=== PATIENT | male | born 1940 | race Caucasian/White ===

== ENCOUNTER 2016-09-29 10:32 | Day surgery (SDC) | payer MEDICARE, OTHER ==
--- NOTE | ~2016-09-29 | EGD ---
EGD REPORT [facility] [address] [place] [address] NAME: DEMETRIUS HUSSEIN : [birth year] STATUS : REG [facility]#: [id number] AGE: 75 ADM/REG DATE : 09/29/16 MR#: [id number] REPORT SERV DATE: 09/29/16 DICTATED BY: NAVI POWER DATE: 09/29/16 REPORT STATUS : Draft TRANSCRIBED BY: [facility] DATE: 09/29/16 [facility] Patient Name: Demetrius Hussein Date of : 1940 Attending MD: NAVI POWER MD Procedure Date No Time: 09/29/2016 Procedure: Colonoscopy Indications: High risk colon cancer surveillance: Personal history of non-advanced adenoma Referring MD: REINA BEAVERS MD Medicines: Propofol per Anesthesia Complications: No immediate complications. Estimated blood loss: Minimal. Procedure: Pre-Anesthesia Assessment: - After reviewing the risks and benefits, the patient was deemed in satisfactory condition to undergo the procedure. - Prior to the procedure, a History and Physical was performed, and patient medications and allergies were reviewed. The patient's tolerance of previous anesthesia was also reviewed. The risks and benefits of the procedure and the sedation options and risks were discussed with the patient. All questions were answered, and informed consent was obtained. Prior Anticoagulants: The patient has taken no previous anticoagulant or antiplatelet agents. ASA Grade Assessment: III - A patient with severe systemic disease. After reviewing the risks and benefits, the patient was deemed in satisfactory condition to undergo the procedure. After I obtained informed consent, the scope was passed under direct vision. Throughout the procedure, the patient's blood pressure, pulse, and oxygen saturations were monitored continuously. The CF [id number] was introduced through the anus and advanced to the cecum, identified by appendiceal orifice and ileocecal valve. The colonoscopy was somewhat difficult due to significant looping. Successful completion of the procedure was aided by applying abdominal pressure. The ileocecal valve and appendiceal orifice were photographed. The patient tolerated the procedure well. The quality of the bowel preparation was good. The bowel preparation used was split dose polyethylene glycol (PEG). Scope withdrawal time was greater than 9 minutes. Findings: EGD REPORT [address] [place]. [address] NAME: DEMETRIUS HUSSEIN : [birth year] STATUS : REG [facility] [place] PAT#: [id number] AGE: 75 ADM/REG DATE : 09/29/16 MR#: [id number] REPORT SERV DATE: 09/29/16 DICTATED BY: NAVI POWER DATE: 09/29/16 REPORT STATUS : Draft TRANSCRIBED BY: [employer] DATE: 09/29/16 The perianal and digital rectal examinations were normal. Pertinent negatives include normal sphincter tone. Non-bleeding internal hemorrhoids were found during retroflexion and were large and Grade I (internal hemorrhoids that do not prolapse). Multiple small-mouthed diverticula were found in the sigmoid colon and in the descending colon. A sessile polyp was found in the transverse colon. The polyp was 5 mm in size. The polyp was removed with a cold snare. Resection and retrieval were complete. Estimated blood loss: none. A few small angiodysplastic lesions with bleeding were found in the distal rectum. The exam was otherwise without abnormality. Impression: - Non-bleeding internal hemorrhoids. - Moderate diverticulosis in the sigmoid colon and in the descending colon. - One 5 mm polyp in the transverse colon. Resected and retrieved. - A few bleeding colonic angiodysplastic lesions. - The examination was otherwise normal. - Radiation colitis. Recommendation: - Discharge patient to home (ambulatory). - High fiber diet indefinitely. - Continue present medications. - Await pathology results. - Repeat colonoscopy in 5 years for surveillance. - Patient has a contact number available for emergencies. The signs and symptoms of potential delayed complications were discussed with the patient. Return to normal activities tomorrow. Written discharge instructions were provided to the patient. 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 [address] NAME: DEMETRIUS HUSSEIN : [birth year] STATUS : REG [facility]#: [id number] AGE: 75 ADM/REG DATE : 09/29/16 MR#: [id number] REPORT SERV DATE: 09/29/16 DICTATED BY: NAVI POWER. DATE: 09/29/16 REPORT STATUS : Draft TRANSCRIBED BY: [employer] DATE: 09/29/16 CPT copyright 2013 [employer]. All rights reserved. The codes documented in this report are preliminary and upon sorting machine attendant review may be revised to meet current compliance requirements. NAVI POWER MD 09/29/2016 1:57 PM This report has been signed electronically. Number of Addenda: 0 Note Initiated On: 09/29/2016 1:25 PM Scope Withdrawal Time 0 hours 9 minutes 22 seconds [address] [facility] [address] [id number]
[~2016-09-29 10:32] MED LIST: ADVAIR250 INH; ALEVE220 MG PO; AMBIEN CR12.5 MG PO; ARICEPT10 PO; CAL/MAG/ZINC PO; COMBIVENT INH; COMBIVENT RESPIM4 GM INH; COSAMIN DS1 TAB PO; DUONEB INH; FISH-EPA1000 MG PO; L40 PO; MAGTRATE500 MG PO; MOBIC7.5 PO; MUCINEX600 MG PO; POTASSIUM GLUCO99 MG PO; POTASSIUM PO; POTASSIUM95 MG PO; VENTOLIN HFA INH; X5 PO; ZOL50 PO; ZYRTEC ALLGY10 MG PO
== END 2016-09-29 23:59 | disposition home or self-care (01) ==
LOC: DMU 10:32
PROVIDERS: Internal Medicine Gastroenterology
PROC: 0DBL8ZX Excision of Transverse Colon, Via Natural or Artificial Opening Endoscopic, Diagnostic (ICD-10-PCS; principal; 2016-09-29 12:00)
DX: Z12.11 Encounter for screening for malignant neoplasm of colon (principal); D12.3 Benign neoplasm of transverse colon; K64.0 First degree hemorrhoids; K57.30 Diverticulosis of large intestine without perforation or abscess without bleeding; K55.21 Angiodysplasia of colon with hemorrhage; K52.0 Gastroenteritis and colitis due to radiation; J44.9 Chronic obstructive pulmonary disease, unspecified; G47.33 Obstructive sleep apnea (adult) (pediatric); F41.9 Anxiety disorder, unspecified; F32.9 Major depressive disorder, single episode, unspecified; Z86.010 Personal history of colon polyps; Z87.891 Personal history of nicotine dependence; Z99.89 Dependence on other enabling machines and devices; Z88.0 Allergy status to penicillin; Z79.899 Other long term (current) drug therapy; Z98.41 Cataract extraction status, right eye; Z98.42 Cataract extraction status, left eye; Z98.890 Other specified postprocedural states
CPT/HCPCS: 88305